=== PATIENT | female | born 2000 | race African-American/Black ===

== ENCOUNTER 2020-08-28 15:17 | Outpatient (CLI) | payer OTHER ==
--- NOTE | 2020-08-28 17:06 | Ultrasound Report ---
PROCEDURE: OB First Trimester INDICATIONS: TEST POSITIVE OUTSIDE/PRIOR DATING DATA: Last menstrual period (LMP): 07/10/2020. LMP-based estimated date of delivery (ALESSANDRO): 04/16/2021. First dating scan (date and location): 08/28/2020. Estimated date of delivery (ALESSANDRO) from first dating scan: 04/17/2021. TECHNIQUE: Real-time scanning was performed of the fetus and maternal pelvic organs, with image documentation. COMPARISON: None FINDINGS: Embryo: Single live intrauterine with crown-rump length measuring 9 mm corresponding to 6 weeks 6 days. heart rate is identified at 145 bpm. Measurement variability in dating: +/- 4 weeks by LMP, +/- 7 days by mean sac diameter (use before 6 weeks gestation if crown-rump length not able to be measured), +/- 5 days by crown-rump length (6-12 weeks gestation). Maternal organs: Ovaries demonstrate a left corpus luteal cyst. It measures 24 x 20 x 25 mm.. IMPRESSION: 1. Single live intrauterine corresponding to 6 weeks 6 days. 2. Left corpus luteal cyst. Reviewed by: Madisyn Jay MD on 08/28/2020 5:05 PM PDT Approved by: Madisyn Jay MD on 08/28/2020 5:05 PM PDT Station ID: [id number]
== END 2020-08-28 15:18 | disposition home or self-care (01) ==
LOC: DI 15:17
PROVIDERS: ATTEND Advanced Practice Midwife
DX: Z32.01 Encounter for pregnancy test, result positive (principal)

== ENCOUNTER 2020-09-02 20:31 | Emergency (ER) | payer OTHER ==
[2020-09-02 21:00] LABS: BASOPHILS % (AUTO) 0.3 %; EOSINOPHILS # (AUTO) 0.1 10^3/uL (0.0-0.7); EOSINOPHILS % (AUTO) 1.1 %; HGB - HEMOGLOBIN 11.9 g/dL (12.0-16.0); LYMPHOCYTES # (AUTO) 1.8 10^3/uL (1.5-3.5); LYMPHOCYTES % (AUTO) 25.9 %; MEAN CORPUSCULAR HEMOGLOBIN 23.5 pg (27.0-31.0); MEAN CORPUSCULAR HGB CONC 33.1 g/dL (32.0-36.0); MEAN CORPUSCULAR VOLUME 71.1 fL (81.0-99.0); MEAN PLATELET VOLUME 10.9 fL (7.9-10.8); MONOCYTES # (AUTO) 0.6 10^3/uL (0.0-1.0); MONOCYTES % (AUTO) 8.6 %; NEUTROPHILS # (AUTO) 4.5 10^3/uL (1.5-6.6); NEUTROPHILS % (AUTO) 63.8 %; PLT - PLATELET COUNT 193 10^3/uL (130-450); RED BLOOD COUNT 5.06 10^6/uL (4.20-5.40); RED CELL DISTRIBUTION WIDTH 13.7 % (12.0-15.0); WHITE BLOOD COUNT 7.1 x10^3/uL (4.8-10.8)
[2020-09-02 21:11] LABS: ALBUMIN 4.6 g/dL (3.2-5.5); ALBUMIN/GLOBULIN RATIO 1.6 (1.0-2.2); BILIRUBIN,TOTAL 0.4 mg/dL (0.2-1.0); CALCIUM 9.4 mg/dL (8.5-10.3); CREATININE 0.5 mg/dL (0.4-1.0); POTASSIUM 3.2 mmol/L (3.5-5.0); TOTAL PROTEIN 7.4 g/dL (6.7-8.2)
--- NOTE | 2020-09-02 21:11 | ED Physician Documentation ---
PD HPI FEMALE - Stated complaint Stated Complaint: F - Chief complaint Chief Complaint: Abd Pain - History obtained from History obtained from: Patient - Additional information Additional information: 20-year-old G1 at 7 weeks gestation had a small amount of vaginal discharge that Fell into the toilet just prior to arrival. She has mild cramps but no bleeding. She had a reassuring ultrasound about a week ago. She has a history of STDs but is not currently concerned about that. Review of Systems Constitutional: denies: Fever, Chills GI: denies: Abdominal Pain, Nausea, Vomiting : denies: Dysuria, Frequency PD PAST MEDICAL HISTORY - Present Medications Home Medications: Ambulatory Orders Medication Instructions Recorded Confirmed metroNIDAZOLE [Flagyl] 500 mg PO BID #14 tablet 09/03/20 - Allergies Allergies/Adverse Reactions: Allergies Allergy/AdvReac Type Severity Reaction Status Date / Time No Known Drug Allergies Allergy Verified 09/02/20 20:46 PD ED PE NORMAL - Vitals Vital signs reviewed: Yes - General General: Alert and oriented X 3, No acute distress - Abdomen Abdomen: Soft, Non tender, Other (Bedside ultrasound demonstrates single live intrauterine with a heart rate of 160) - Neuro Neuro: Alert and oriented X 3, Normal speech Results - Vitals Vitals: Vital Signs - 24 hr 09/02/20 09/02/20 20:35 21:30 Temperature 36.5 C Heart Rate 87 85 Respiratory 18 20 Rate Blood Pressure 151/88 H 148/85 H O2 Saturation 100 100 Oxygen O2 Source Room air - Labs Labs: Laboratory Tests 09/02/20 09/02/20 09/02/20 20:39 20:39 20:39 WBC RBC Hgb Hct MCV MCH MCHC RDW Plt Count MPV Neut # (Auto) Lymph # (Auto) Faulk # (Auto) Eos # (Auto) Baso # (Auto) Absolute Nucleated RBC Nucleated RBC % Sodium Potassium Chloride Carbon Dioxide Anion Gap BUN Creatinine Estimated GFR (MDRD) Glucose Calcium Total Bilirubin AST ALT Alkaline Phosphatase Total Protein Albumin Globulin Albumin/Globulin Ratio Lipase Urine Color YELLOW Urine Clarity CLEAR Urine pH 6.0 Ur Specific Leupp 1.020 Urine Protein NEGATIVE Urine Glucose (UA) NEGATIVE Urine Ketones 15 H Urine Occult Blood SMALL H Urine Nitrite NEGATIVE Urine Bilirubin NEGATIVE Urine Urobilinogen 0.2 (NORMAL) Ur Leukocyte Esterase SMALL H Urine RBC 6-10 H Urine WBC 6-10 H Ur Squamous Epith Cells MOD Squamous H Urine Bacteria Rare Urine Mucus Few Strands Ur Microscopic Review INDICATED Urine Culture Comments NOT INDICATED Urine HCG, Qual POSITIVE C. glabrata (PCR) C. krusei (PCR) Sallie species DNA Chlam trachomat DNA PCR NEGATIVE N.gonorrhoeae DNA (PCR) NEGATIVE T. vaginalis (PCR) NEGATIVE Bact Vaginosis (PCR) 09/02/20 09/02/20 09/02/20 20:52 20:52 21:21 WBC 7.1 RBC 5.06 Hgb 11.9 L Hct 36.0 L MCV 71.1 L MCH 23.5 L MCHC 33.1 RDW 13.7 Plt Count 193 MPV 10.9 H Neut # (Auto) 4.5 Lymph # (Auto) 1.8 Faulk # (Auto) 0.6 Eos # (Auto) 0.1 Baso # (Auto) 0.0 Absolute Nucleated RBC 0.00 Nucleated RBC % 0.0 Sodium 134 L Potassium 3.2 L Chloride 103 Carbon Dioxide 21 Anion Gap 10.0 BUN 7 Creatinine 0.5 Estimated GFR (MDRD) 187 Glucose 109 H Calcium 9.4 Total Bilirubin 0.4 AST 16 ALT 14 Alkaline Phosphatase 45 Total Protein 7.4 Albumin 4.6 Globulin 2.8 Albumin/Globulin Ratio 1.6 Lipase 25 Urine Color Urine Clarity Urine pH Ur Specific Leupp Urine Protein Urine Glucose (UA) Urine Ketones Urine Occult Blood Urine Nitrite Urine Bilirubin Urine Urobilinogen Ur Leukocyte Esterase Urine RBC Urine WBC Ur Squamous Epith Cells Urine Bacteria Urine Mucus Ur Microscopic Review Urine Culture Comments Urine HCG, Qual C. glabrata (PCR) NEGATIVE C. krusei (PCR) NEGATIVE Sallie species DNA NEGATIVE Chlam trachomat DNA PCR N.gonorrhoeae DNA (PCR) T. vaginalis (PCR) NEGATIVE Bact Vaginosis (PCR) POSITIVE A PD MEDICAL DECISION MAKING - ED course ED course: 20-year-old woman presents with vaginal discharge in . Her main concern is for BV or yeast. Reassuring ultrasound at the bedside. She is self swabbing for the above. Called her by phone at [phone] on 09/03/20, given long TAT for vaginosis swabs. She is positive for BV and flagyl rx sent electronically to [facility] after discussion with her. Departure - Departure Disposition: 01 Home, Self Care Clinical Impression: Bacterial vaginosis Vaginal discharge during Qualifiers: Trimester: first trimester Qualified Code(s): O26.891 - Other specified related conditions, first trimester Condition: Good Record reviewed to determine appropriate education?: Yes Prescriptions: metroNIDAZOLE [Flagyl] 500 mg PO BID #14 tablet Comments: We will call if we find something in the swabs that needs specific treatment. Return if worsening. Follow-up with your OB. Discharge Date/Time: 09/02/20 21:30
[2020-09-02 21:19] LABS: HCG UR QUAL POSITIVE
[2020-09-02 21:20] LABS: BILIRUBIN,URINE NEGATIVE (NEGATIVE); GLUCOSE, URINE (UA) NEGATIVE (NEGATIVE); KETONES,URINE (UA) 15 mg/dL (NEGATIVE); LEUKOCYTE ESTERASE, URINE SMALL (NEGATIVE); NITRITE,URINE NEGATIVE (NEGATIVE); OCCULT BLOOD,URINE SMALL (NEGATIVE); PROTEIN,URINE NEGATIVE (NEGATIVE); UROBILINOGEN,URINE 0.2 (NORMAL) E.U./dL (NORMAL)
[2020-09-02 21:21] LABS: CLARITY,URINE CLEAR (CLEAR)
[2020-09-02 21:25] LABS: BACTERIA,URINE Rare /HPF (None Seen); MUCUS,URINE Few Strands; SQUAMOUS EPITHELIAL CELL,UR MOD Squamous (<= Few)
[2020-09-02 21:41] VITALS: BP 148/85
[2020-09-02 23:54] LABS: CHLAMYDIA TRACHOMATIS DNA NEGATIVE (NEGATIVE); NEISSERIA GONORRHOEAE DNA NEGATIVE (NEGATIVE); TRICHOMONAS VAGINALIS DNA NEGATIVE (NEGATIVE)
[2020-09-03 01:53] LABS: BACTERIAL VAGINOSIS DNA POSITIVE (NEGATIVE); CANDIDA GLABRATA DNA NEGATIVE (NEGATIVE); CANDIDA GROUP DNA NEGATIVE (NEGATIVE); CANDIDA KRUSEI DNA NEGATIVE (NEGATIVE); TRICHOMONAS VAGINALIS DNA NEGATIVE (NEGATIVE)
--- NOTE | 2020-09-03 03:01 | ED Physician Documentation ---
ED Addendum - Addendum Addendum: 09/03/20 03:00 The patient's vaginal swab did result showing bacterial vaginosis. I wrote for the morning nurses for culture follow-up to contact the patient in with a prescription for Flagyl 500 mg twice daily. She is to follow-up with her [facility]. Diagnosis bacterial vaginosis. .
== END 2020-09-02 21:30 | disposition home or self-care (01) ==
LOC: SUPCPDRO 20:31 → ED 20:31
DX: O23.591 Infection of other part of genital tract in pregnancy, first trimester (principal); Z3A.01 Less than 8 weeks gestation of pregnancy
CPT/HCPCS: 36415; 80053; 81001; 81003; 81025; 83690; 85025; 87086; 87210; 87491; 87591; 87661; 87801; 99283

== ENCOUNTER 2020-09-13 12:05 | Outpatient (CLI) | payer OTHER ==
[2020-09-13 12:43] LABS: HCT - HEMATOCRIT 37.1 % (37.0-47.0); HGB - HEMOGLOBIN 11.7 g/dL (12.0-16.0); MEAN CORPUSCULAR HEMOGLOBIN 22.8 pg (27.0-31.0); MEAN CORPUSCULAR HGB CONC 31.5 g/dL (32.0-36.0); MEAN CORPUSCULAR VOLUME 72.3 fL (81.0-99.0); MEAN PLATELET VOLUME 12.6 fL (7.9-10.8); RED BLOOD COUNT 5.13 10^6/uL (4.20-5.40)
[2020-09-13 13:00] LABS: ALBUMIN 4.3 g/dL (3.2-5.5); ALBUMIN/GLOBULIN RATIO 1.6 (1.0-2.2); BILIRUBIN,TOTAL 0.6 mg/dL (0.2-1.0); CALCIUM 9.3 mg/dL (8.5-10.3); CREATININE 0.6 mg/dL (0.4-1.0); POTASSIUM 3.9 mmol/L (3.5-5.0)
== END 2020-09-13 12:06 | disposition home or self-care (01) ==
LOC: LAB 12:05
PROVIDERS: ATTEND Obstetrics & Gynecology
DX: Z32.01 Encounter for pregnancy test, result positive (principal); O99.019 Anemia complicating pregnancy, unspecified trimester; D64.9 Anemia, unspecified
CPT/HCPCS: 36415; 80053; 82728; 83540; 84466; 84702; 85027; 86850; 86900; 86901

== ENCOUNTER 2020-09-27 08:00 | Outpatient (CLI) | payer OTHER ==
[2020-09-27 21:44] LABS: CHLAMYDIA TRACHOMATIS DNA NEGATIVE (NEGATIVE); NEISSERIA GONORRHOEAE DNA NEGATIVE (NEGATIVE); TRICHOMONAS VAGINALIS DNA NEGATIVE (NEGATIVE)
[2020-09-27 22:45] LABS: BACTERIAL VAGINOSIS DNA NEGATIVE (NEGATIVE); CANDIDA GLABRATA DNA NEGATIVE (NEGATIVE); CANDIDA GROUP DNA NEGATIVE (NEGATIVE); CANDIDA KRUSEI DNA NEGATIVE (NEGATIVE); TRICHOMONAS VAGINALIS DNA NEGATIVE (NEGATIVE)
== END 2020-09-27 23:59 | disposition home or self-care (01) ==
LOC: LAB.WC 08:00
PROVIDERS: ATTEND Obstetrics & Gynecology
DX: N76.0 Acute vaginitis (principal); Z11.3 Encounter for screening for infections with a predominantly sexual mode of transmission
CPT/HCPCS: 87491; 87591; 87661; 87801

== ENCOUNTER 2020-09-27 11:33 | Outpatient (CLI) | payer OTHER | END 2020-09-27 11:34 | disposition home or self-care (01) | LOC: LAB 11:33 | PROVIDERS: ATTEND Obstetrics & Gynecology | DX: N76.0 Acute vaginitis (principal); Z11.3 Encounter for screening for infections with a predominantly sexual mode of transmission | CPT/HCPCS: 36415; 84702; 87491; 87591; 87661; 87801 ==

== ENCOUNTER 2020-10-11 11:50 | Outpatient (CLI) | payer OTHER | END 2020-10-11 11:51 | disposition home or self-care (01) | LOC: LAB 11:50 | PROVIDERS: ATTEND Obstetrics & Gynecology | DX: Z33.2 Encounter for elective termination of pregnancy (principal); D64.9 Anemia, unspecified | CPT/HCPCS: 36415; 81599; 82728; 83020; 84702; 85014; 85018; 85041; 85660 ==

== ENCOUNTER 2020-11-12 12:26 | Outpatient (CLI) | payer OTHER | END 2020-11-12 12:27 | disposition home or self-care (01) | LOC: LAB 12:26 | PROVIDERS: ATTEND Obstetrics & Gynecology | DX: Z33.2 Encounter for elective termination of pregnancy (principal) | CPT/HCPCS: 36415; 84702 ==

== ENCOUNTER 2020-12-03 13:53 | Outpatient (CLI) | payer OTHER | END 2020-12-03 13:54 | disposition home or self-care (01) | LOC: LAB 13:53 | PROVIDERS: ATTEND Obstetrics & Gynecology | DX: Z33.2 Encounter for elective termination of pregnancy (principal); Z32.01 Encounter for pregnancy test, result positive | CPT/HCPCS: 36415; 84702 ==

== ENCOUNTER 2022-01-14 14:57 | Outpatient (CLI) | payer OTHER ==
[~2022-01-14 14:57] MED LIST: GADOBUTROL 7.5 MMOL/7.5 ML VIAL ONE
[2022-01-14] MEDS ORDERED: GADOBUTROL 7.5 MMOL/7.5 ML VIAL IVP ONE (16:01)
--- NOTE | 2022-01-14 18:19 | MRI Report ---
PROCEDURE: Brain W/WO INDICATIONS: HYPERPROLACTINEMIA CONTRAST: Gadolinium contrast given. TECHNIQUE: Noncontrast sagittal and axial FLAIR, axial gradient echo, axial diffusion and ADC through the brain. Thin-slice sagittal and coronal T1 spin echo, coronal T2 fast spin echo through the pituitary. Aft er the administration contrast, optional dynamic coronal T1 spin echo, thin-slice coronal and sagitta l T1 spin echo images through the pituitary fossa; axial T1 spin echo with fat saturation through the brain. COMPARISON: None. FINDINGS: Image quality: Motion artifact is noted. Pituitary Gland: The pituitary gland demonstrates normal bulk and normal signal. A normal-appearing posterior pituitary T1 hyperintense bright spot is seen. With administration of contrast, the pituita ry demonstrates normal-appearing, homogeneous contrast enhancement, without hyperenhancing or hypoenh ancing lesions seen within it to suggest pituitary masses. The pituitary stalk is midline and demonst rates no abnormal enhancement. The optic chiasm and the ventral forebrain demonstrate an unremarkable appearance. CSF Spaces: Ventricles are normal in size and shape. Basal cisterns are patent. No extra-axial flu id collections. Brain: No intracranial bleeds or mass effects. No abnormal intracranial enhancement. Nino-white ma tter interface is intact. Diffusion weighted images demonstrate no acute ischemic insults. Brainste m is normal. Normal intravascular flow voids are present. Skull and face: Calvarial marrow is normal in signal. Orbits appear normal. Sinuses: There is a right maxillary sinus mucus retention cyst seen. Sinuses and mastoids are otherw ise clear. IMPRESSION: Normal pituitary protocol MRI, without a cause of the patient's presenting symptoms identified. Reviewed by: Kevin Merritt MD on 01/14/2022 5:18 PM AKDT Approved by: Kevin Merritt MD on 01/14/2022 5:18 PM AKDT Station ID: [id number]
== END 2022-01-14 14:58 | disposition home or self-care (01) ==
LOC: DI 14:57
PROVIDERS: ATTEND Advanced Practice Midwife
DX: E22.1 Hyperprolactinemia (principal)
CPT/HCPCS: 70553; A9585